=== PATIENT | male | born 1960 | race African-American/Black ===

== ENCOUNTER 2017-03-20 20:36 | Emergency (ER) | payer SELFPAY ==
[~2017-03-20] VITALS: Ht 200.7 cm; Wt 106.1 kg
[2017-03-20 22:00] VITALS: BP 144/91
--- NOTE | 2017-03-20 22:11 | Emergency Room Report ---
History of Present Illness General Chief Complaint: Upper Extremity Injury Source: Patient Present Illness HPI This is a 56-year-old male who is left-hand dominant. He presents with left hand pain for the last 5 days. He was angry and punched a wall. He said there was significant swelling but is gone down. Now still painful. Worse with palpation. Worse with movement. Denies any fever chills denies any nausea vomiting. Pain is 7/10. His second complaint is he has an abscess to his right jaw. He has swelling for the last year on and off but worse in the last week. Tender to palpation. It drained before. Allergies: Coded Allergies: No Known Allergies (Unverified , 03/20/17) Patient History Past Medical History: see triage record, old chart reviewed Past Surgical History: other Pertinent Family History: none Social History: Denies: smoking Immunizations: other Reviewed Nursing Documentation: PMH: Agreed, PSxH: Agreed Review of Systems Eye: Denies: eye pain, blurred vision ENT: Denies: ear pain, nose congestion, throat swelling Respiratory: Denies: cough, shortness of breath Cardiovascular: Denies: chest pain, palpitations Gastrointestinal: Denies: abdominal pain, diarrhea, nausea, vomiting Musculoskeletal: Reports: joint pain, Denies: back pain Skin: Denies: rash Neurological: Denies: headache, numbness Endocrine: Denies: increased thirst, increased urine Hematologic/Lymphatic: Denies: easy bruising All Other Systems: negative except mentioned in HPI Physical Exam Vital Signs Date Time Temp Pulse Resp B/P (MAP) Pulse Ox O2 Delivery O2 Flow Rate FiO2 03/20/17 21:46 98.1 121 20 144/91 98 Room Air vitals with tachycardia Sp02 EP Interpretation: reviewed, normal General Appearance: well appearing, no apparent distress, alert Head: normocephalic, atraumatic Eyes: bilateral eye PERRL, bilateral eye EOMI ENT: hearing grossly normal, normal pharynx Neck: full range of motion, supple, no meningismus, other - 3 cm fluctuant mass to the right mandible area. Respiratory: chest non-tender, lungs clear, normal breath sounds Cardiovascular #1: regular rate, rhythm, no murmur Gastrointestinal: normal bowel sounds, non tender, no mass, no organomegaly, no bruit, non-distended Musculoskeletal: back normal, gait/station normal, normal range of motion, tender - Edema and tenderness over the fifth metacarpal bone of left hand. No mild occlusion. Psychiatric: mood/affect normal Skin: warm/dry Procedures Splinting Splinting : Consent: Verbal Location: left hand Pre-Made Type: Splint: ulnar Pre-Proc Neuro Vasc Exam: normal Post-Proc Neuro Vasc Exam: normal Patient Tolerated: Well Complications: None Incision and Drainage Incision and Drainage : Consent: Verbal Site: right jaw Blade Size: 11 I & D Procedure: betadine prep, sterile drapes applied, sterile dressing applied Wound Location: face Wound Explored: clean Anesthesia: 1% Lidocaine Volume Anesthetic (ccs): 5 Patient Tolerated: Well Complications: None Progress Area clean with chlorhexidine and then Betadine. Local anesthetic 1% lidocaine without epinephrine. I made a 2 cm incision. There was copious amount of pus expressed. Also, cottage cheesy material expressed. I did remove part of the So. Patient tolerated procedure without a problem. Medical Decision Making Diagnostic Impression: Primary Impression: Closed boxer's fracture Qualified Codes: S62.339A - Displaced fracture of neck of unspecified metacarpal bone, initial encounter for closed fracture Additional Impression: Infected sebaceous cyst ER Course Patient present with a boxer fracture. And splinted. No evidence of dislocation. He also has an infected sebaceous cyst that was I&D. We'll discharge home. Other X-Ray Diagnostic Results Other X-Ray Diagnostic Results : X-Ray ordered: left hand # of Views/Limited Vs Complete: 3 View Indication: Pain EP Interpretation: Yes Interpretation: no dislocation, no soft tissue swelling, other - boxer's frx Impression: Other - boxer frx Electronically Signed by: Maximo Garza MD Last Vital Signs Date Time Temp Pulse Resp B/P (MAP) Pulse Ox O2 Delivery O2 Flow Rate FiO2 03/20/17 21:46 98.1 121 20 144/91 98 Room Air Status: improved Disposition: HOME, SELF-CARE Condition: Stable Scripts Trimethoprim/Sulfamethoxazole 160/800* (BACTRIM DS TABLET*) 1 Each Tablet 1 TAB ORAL Q12H, #14 TAB 0 Refills Prov: MAXIMO GARZA M.D. 03/20/17 Hydrocodone Bit/Acetaminophen 5-325* (NORCO 5-325*) 1 Each Tablet 1 TAB ORAL Q6H Y for For Pain, #20 TAB 0 Refills Prov: MAXIMO GARZA M.D. 03/20/17 Additional Instructions: Followup with your Dr. in 2-3 days. Return if symptom worsen. MAXIMO GARZA M.D. Mar 20, 2017 22:11
[2017-03-20] MEDS ORDERED: Norco 5mg/325mg tab ORAL ONE (23:00)
[2017-03-20] MEDS ORDERED: NORCO 5-325 TA1 EACH ORAL (23:02)
[2017-03-20] MEDS ORDERED: BACTRIM DS TAB1 EAC1 ORAL (23:02)
[2017-03-20 23:30] VITALS: BP 136/88
[2017-03-20 23:35] VITALS: BP 144/91
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
== END 2017-03-20 23:35 | disposition home or self-care (01) ==
LOC: EMR 22:20
DX: S62.307A Unspecified fracture of fifth metacarpal bone, left hand, initial encounter for closed fracture (principal); W22.8XXA Striking against or struck by other objects, initial encounter; Y92.89 Other specified places as the place of occurrence of the external cause; L72.3 Sebaceous cyst
CPT/HCPCS: 10060; 99284